=== PATIENT | female | born 1955 ===

== ENCOUNTER 2019-06-09 06:40 | Outpatient (CLI) | payer OTHER | END 2019-06-09 23:59 | disposition home or self-care (01) | LOC: DIABETIC 06:40 | PROVIDERS: ATTEND Student in an Organized Health Care Education/Training Program | DX: E11.65 Type 2 diabetes mellitus with hyperglycemia (principal); Z79.82 Long term (current) use of aspirin; Z79.899 Other long term (current) drug therapy; Z88.2 Allergy status to sulfonamides | CPT/HCPCS: G0108 ==

== ENCOUNTER 2019-07-15 04:03 | Outpatient (CLI) | payer OTHER | END 2019-07-15 23:59 | disposition home or self-care (01) | LOC: DIABETIC 04:03 | PROVIDERS: ATTEND Student in an Organized Health Care Education/Training Program | DX: E11.65 Type 2 diabetes mellitus with hyperglycemia (principal) | CPT/HCPCS: G0108 ==